=== PATIENT | female | born 1940 | race Caucasian/White ===

== ENCOUNTER → 2016-09-30 | Outpatient (CLI) | payer OTHER ==
--- NOTE | ~2016-09-30 | MY29 ---
[facility] A Service of [facility] & [facility] RADIOLOGY TEXT RESULTS PATIENT: JERSEY KAYE LOCATION: [facility] : 40 UNIT #: [id number] AGE: [address]: Jo Weems MD SEX: F ORDER DR: [id number] [facility] [address] [place], [place] [address] [id number] O MR#: [id number] Acc #: [id number] NAME: JERSEY KAYE : 1940 SEX: F STUDY DATE/TIME: 09/30/2016 8:24 UNIT: [facility] ROOM: STUDY DESCRIPTION: MY CHANTAL SCREENING W/ CAD BILAT Attending Physician: Jo Weems M.D. Referring Physician: Jo Weems M.D. Ordering Physician: Jo Weems M.D. Primary Care Physician: Jo Weems M.D. MEDICAL IMAGING REPORT This report is preliminary unless electronic signature is present EXAM Digital screening mammogram 09/30/2016, [facility]. HISTORY 76-year-old woman, no risk elevation. Annual screening. COMPARISON Comparison mammograms date to 07/13/2007, with most recent 08/21/2015. Digital imaging of each breast was completed utilizing a two-view examination of each breast in craniocaudal and mediolateral-oblique projections. Review and interpretation of digital mammograms include a second review in conjunction with FDA-approved CAD device. There is a normal parenchymal presentation bilaterally consistent with the patient's age. There are no breast masses imaged and no parenchymal asymmetry is visualized. There are no suspicious microcalcifications and I see no focal architectural disturbance. IMPRESSION Negative screening digital mammogram. One-year followup recommended. Patients over the age of 40 are entered into a reminder system with target due date for the next mammogram. A result letter will also be sent to the patient. BIRADS: 1 Negative Dictated by... Henry Conley M.D. THIS IS AN ELECTRONICALLY VERIFIED REPORT [facility] A Service of [facility] & [facility] RADIOLOGY TEXT RESULTS PATIENT: JERSEY KAYE LOCATION: [facility] : 40 UNIT #: [id number] AGE: [address]: Jo Weems MD SEX: F ORDER DR: Henry Conley M.D. at 09/30/2016 2:24 PM Surya TD: 09/30/2016 14:08 JOB #: [id number] MEDICAL IMAGING REPORT Page 1 of 1 COPY
== END | disposition home or self-care (01) ==
LOC: CWCC 07:47
DX: Z12.31 Encounter for screening mammogram for malignant neoplasm of breast (principal)
CPT/HCPCS: G0202